=== PATIENT | male | born 1990 | race Caucasian/White ===

== ENCOUNTER 2018-12-01 00:33 | Emergency (ER) | payer OTHER, SELFPAY ==
[~2018-12-01] VITALS: Ht 180.3 cm; Wt 93.2 kg
[2018-12-01] MEDS ORDERED: KETOROLAC 60 MG/2 ML VIAL (J1885) IM ONE (02:00)
[2018-12-01 02:58] VITALS: BP 122/70
== END 2018-12-01 02:59 | disposition home or self-care (01) ==
LOC: M ED 00:33
DX: S29.012A Strain of muscle and tendon of back wall of thorax, initial encounter (principal); V49.19XA Passenger injured in collision with other motor vehicles in nontraffic accident, initial encounter; Y92.410 Unspecified street and highway as the place of occurrence of the external cause
CPT/HCPCS: 96372; 99283; J1885